=== PATIENT | female | born 1985 | race Caucasian/White ===

== ENCOUNTER 2017-10-05 19:10 | Emergency (ER) | payer OTHER, MEDICAID ==
[2017-10-05] MEDS: HYDROCODONE/APAP (10/325) TAB PO (21:16)
[2017-10-05] MEDS: ONDANSETRON (ODT) 4 MG TAB ODT (21:16)
[2017-10-05] MEDS: KETOROLAC 60 MG INJ IM (21:17)
== END 2017-10-05 23:15 | disposition home or self-care (01) ==
LOC: FTE 19:10
DX: R51 Headache (principal); J45.909 Unspecified asthma, uncomplicated
CPT/HCPCS: 70450; 81025; 96372; 99285-25

== ENCOUNTER 2018-07-02 15:53 | Emergency (ER) | payer OTHER ==
[2018-07-02] MEDS: METHOCARBAMOL 750 MG TAB PO (18:57)
[2018-07-02] MEDS: DEXAMETHASONE 10 MG/ML 1 ML INJ IM (18:58)
[2018-07-02] MEDS: KETOROLAC 30 MG INJ IM (18:59)
[2018-07-02 19:16] LABS: ADD UMIC YES; UR ASCORBIC ACID NEGATIVE (NEGATIVE); UR BILIRUBIN (Dip) NEGATIVE (NEGATIVE); UR BLOOD (Dip) 2+ mg/dL (NEGATIVE); UR BUDDING YEAST FEW /HPF (NONE SEEN); UR CLARITY SLIGHTLY CLOUDY (CLEAR); UR COLOR YELLOW (YELLOW); UR GLUCOSE (Dip) NEGATIVE (NEGATIVE); UR KETONES (Dip) NEGATIVE (NEGATIVE); UR LEUKOCYTE ESTERASE (Dip) 3+ Leu/ul (NEGATIVE); UR NITRITE (Dip) NEGATIVE (NEGATIVE); UR RBC 6 /HPF (0-5); UR SPECIFIC GRAVITY (Dip) 1.009 (1.003-1.030); UR SQUAMOUS EPITHELIAL CELL FEW /HPF (FEW); UR TOTAL PROTEIN (Dip) 1+ mg/dl (NEGATIVE); UR UROBILINOGEN (Dip) NEGATIVE (NEGATIVE); UR WBC 145 /HPF (0-5)
== END 2018-07-02 20:31 | disposition home or self-care (01) ==
LOC: FTE 15:53
DX: M54.5 Low back pain (principal); N30.00 Acute cystitis without hematuria; J45.909 Unspecified asthma, uncomplicated; I10 Essential (primary) hypertension
CPT/HCPCS: 81001; 81025; 96372; 99284-25